=== PATIENT | female | born 1965 | race Caucasian/White ===

== ENCOUNTER → 2020-06-07 09:39 | Outpatient (BNVA) | payer MEDICARE, SELFPAY | PROVIDERS: Family Provider Nurse Practitioner; PCP Nurse Practitioner; Visit Provider Nurse Practitioner | DX: Z00.00 Encounter for general adult medical examination without abnormal findings (principal); E66.2 Morbid (severe) obesity with alveolar hypoventilation; E55.9 Vitamin D deficiency, unspecified; Z13.6 Encounter for screening for cardiovascular disorders; Z13.29 Encounter for screening for other suspected endocrine disorder | CPT/HCPCS: 80053; 80061; 81000; 82306; 84443; 85025 ==

== ENCOUNTER → 2022-05-28 11:13 | Outpatient (BNVA) | payer MEDICARE, SELFPAY | PROVIDERS: Family Provider Nurse Practitioner; PCP Nurse Practitioner; Visit Provider Nurse Practitioner Family | DX: B02.9 Zoster without complications (principal); E55.9 Vitamin D deficiency, unspecified; R73.9 Hyperglycemia, unspecified | CPT/HCPCS: 80053; 82306; 83036 ==

== ENCOUNTER 2022-06-29 06:51 | Outpatient (CLI) | payer MEDICARE, SELFPAY ==
--- NOTE | 2022-06-29 07:15 | US_ITS ---
WS: [email or web address] RIGHT UPPER QUADRANT ULTRASOUND HISTORY: R10.11 - Right upper quadrant pain COMPARISON: 09/07/2018 Liver: 16.6 cm in length. Normal size liver. No bile duct dilatation or mass. Portal Vein: Normal hepatopetal flow with monophasic waveform. Gallbladder: Status post cholecystectomy. CBD: 0.4 cm Pancreas: Normal size and echogenicity. Right kidney: 10.6 cm in length. Normal size and echogenicity. No hydronephrosis or mass. Aorta and IVC: Unremarkable abdominal aorta and IVC. No ascites. US/US abdomen limited [id number] IMPRESSION: 1. Status post cholecystectomy. 2. Normal liver and common bile duct.
--- NOTE | 2022-06-29 08:09 | MM_ITS ---
WS: [email or web address] SCREENING DIGITAL BREAST TOMOSYNTHESIS MAMMOGRAM WITH CAD HISTORY: Screening exam. COMPARISON: None available. Bilateral CC and MLO with tomosynthesis and synthetic mammography submitted. Computer aided detection analyzed. Breast composition: There are scattered areas of fibroglandular density. Small cluster of calcificati on in the central LEFT breast at a posterior depth. I suspect this may be a cluster of calcifications associated with an artery. This needs to be further evaluated to be sure these are arterial in origi n. No additional abnormality. MM/[place] [id number] IMPRESSION: BI-RADS: 0-Incomplete: Need additional imaging evaluation FOLLOW UP: Need Additional Imaging LEFT BREAST: Magnification views of suspicious calcification CC and MLO. Lefty Jenkins
== END 2022-06-29 06:52 | disposition home or self-care (01) ==
LOC: RAD 06:54
PROVIDERS: PCP Nurse Practitioner; Visit Provider Nurse Practitioner Family
DX: Z12.31 Encounter for screening mammogram for malignant neoplasm of breast (principal); R10.11 Right upper quadrant pain
CPT/HCPCS: 76705; 77063; 77067

== ENCOUNTER 2022-07-03 09:00 | Outpatient (CLI) | payer MEDICARE, SELFPAY ==
--- NOTE | 2022-07-03 | MM_ITS ---
WS: [email or web address] ADDITIONAL VIEWS LEFT MAMMOGRAM WITH DIGITAL BREAST TOMOSYNTHESIS. HISTORY: Calcifications on screening mammogram. COMPARISON: 06/29/2022. Magnification views LEFT breast in CC, MLO projections and true ML submitted with digital breast joe synthesis and SM. Calcifications persist in the central LEFT breast. There are a few calcifications of various sizes. M ajority of these are round and may be vascular in etiology. Some of these appear lucent centered. Fav or these are probably benign and therefore six-month follow-up recommended. MM/[place] [id number] IMPRESSION: BI-RADS: 3-Probably Benign FOLLOW UP: 6 Month Follow-up Recommend diagnostic LEFT mammogram follow-up in 6 months with magnification vi ews of the calcifications.
--- NOTE | 2022-07-03 09:10 | MM_ITS ---
WS: [email or web address] ADDITIONAL VIEWS LEFT MAMMOGRAM WITH DIGITAL BREAST TOMOSYNTHESIS. HISTORY: Calcifications on screening mammogram. COMPARISON: 06/29/2022. Magnification views LEFT breast in CC, MLO projections and true ML submitted with digital breast joe synthesis and SM. Calcifications persist in the central LEFT breast. There are a few calcifications of various sizes. M ajority of these are round and may be vascular in etiology. Some of these appear lucent centered. Fav or these are probably benign and therefore six-month follow-up recommended.
== END 2022-07-03 09:01 | disposition home or self-care (01) ==
PROVIDERS: PCP Nurse Practitioner; Visit Provider Nurse Practitioner Family
DX: R92.1 Mammographic calcification found on diagnostic imaging of breast (principal)
CPT/HCPCS: 77061; 77065; G0279

== ENCOUNTER → 2023-01-04 11:47 | Outpatient (BNVA) | payer MEDICARE, SELFPAY | PROVIDERS: PCP Nurse Practitioner; Visit Provider Nurse Practitioner Family | DX: R73.03 Prediabetes (principal); E66.2 Morbid (severe) obesity with alveolar hypoventilation; E55.9 Vitamin D deficiency, unspecified; R21 Rash and other nonspecific skin eruption; Z86.19 Personal history of other infectious and parasitic diseases; M25.50 Pain in unspecified joint; G89.29 Other chronic pain | CPT/HCPCS: 80053; 80061; 82306; 83036; 84443; 85025 ==

== ENCOUNTER 2023-01-13 10:52 | Outpatient (CLI) | payer MEDICARE, SELFPAY ==
--- NOTE | 2023-01-13 11:07 | MM_ITS ---
WS: [email or web address] DIAGNOSTIC LEFT DIGITAL TOMOSYNTHESIS MAMMOGRAPHY WITH CAD. HISTORY: 6M[facility] CALCS COMPARISON: 07/03/2022, 06/29/2022 Technique: CC, MLO and ML views. LEFT CC and MLO magnification views. Breast composition: There are scattered areas of fibroglandular density. No interval change in the fo elham calcifications in the central LEFT breast. No distortion. No new calcifications. IMPRESSION: MM/[place] [id number] BI-RADS: 3-Probably Benign FOLLOW UP: 6 Month Follow-up Patient return in 6 months for diagnostic, bilateral mammogram. Additional magn ification views of the LEFT breast calcification should be performed at that ti tn.
== END 2023-01-13 10:53 | disposition home or self-care (01) ==
PROVIDERS: PCP Nurse Practitioner; Visit Provider Nurse Practitioner Family
DX: R92.1 Mammographic calcification found on diagnostic imaging of breast (principal)
CPT/HCPCS: 77061; G0279

== ENCOUNTER 2023-07-19 09:12 | Outpatient (CLI) | payer MEDICARE, SELFPAY ==
--- NOTE | 2023-07-19 09:17 | MM_ITS ---
WS: [email or web address] VIEWS: MLO, CC, and ML views both breasts. 3D digital tomosynthesis is also included in this exam. Comparison made with prior exam of 323, 07/03/2022, 01/13/2023.. Findings: There are stable appearing calcifications in the central LEFT breast. No sign of new mass in either b reast. There are scattered areas of fibroglandular density Impression: MM/[place] [id number] BI-RADS: 2-Benign finding. FOLLOW-UP: 1 Year Follow-up This mammogram was also analyzed by the Computer Aided Detection System R2 Imag e A&P Technician.
== END 2023-07-19 09:13 | disposition home or self-care (01) ==
LOC: RAD 09:13
PROVIDERS: PCP Nurse Practitioner; Visit Provider Nurse Practitioner Family
DX: Z12.39 Encounter for other screening for malignant neoplasm of breast (principal); Z87.898 Personal history of other specified conditions; R92.30 Dense breasts, unspecified
CPT/HCPCS: 77062; G0279

== ENCOUNTER → 2024-07-11 14:45 | Outpatient (BNVA) | payer MEDICARE, SELFPAY | PROVIDERS: PCP Nurse Practitioner; Visit Provider Family Medicine | DX: E55.9 Vitamin D deficiency, unspecified (principal); Z86.19 Personal history of other infectious and parasitic diseases; E66.2 Morbid (severe) obesity with alveolar hypoventilation; Z00.00 Encounter for general adult medical examination without abnormal findings; E03.9 Hypothyroidism, unspecified | CPT/HCPCS: 80053; 80061; 82306; 82607; 83036; 83735; 84443; 85025; 86140 ==

== ENCOUNTER 2024-07-19 10:11 | Outpatient (CLI) | payer MEDICARE, SELFPAY ==
--- NOTE | 2024-07-19 10:20 | MM_ITS ---
WS: [email or web address] BILATERAL SCREENING DIGITAL TOMOSYNTHESIS MAMMOGRAM WITH CAD HISTORY: Z12.39 - Encounter for other screening for malignant neop... COMPARISON: 07/19/2023, 01/13/2023 Bilateral CC and MLO views with tomosynthesis and synthetic mammography submitted. Computer aided detection analyzed. Breast composition: There are scattered areas of fibroglandular density. No suspicious masses, microcalcifications or architectural distortion. Scattered asymmetries and calcifications are stable. Small cluster of calcifications in the central LEFT breast have not progressed. MM/MM scr BI tomosynthesis [id number] IMPRESSION: BI-RADS: 2 - Benign. FOLLOW UP: 1 Year Follow-up
== END 2024-07-19 10:12 | disposition home or self-care (01) ==
PROVIDERS: PCP Nurse Practitioner; Visit Provider Family Medicine
DX: Z12.31 Encounter for screening mammogram for malignant neoplasm of breast (principal); R92.323 Mammographic fibroglandular density, bilateral breasts; N64.89 Other specified disorders of breast; R92.1 Mammographic calcification found on diagnostic imaging of breast
CPT/HCPCS: 77063; 77067

== ENCOUNTER → 2024-07-24 09:16 | Outpatient (BNVA) | payer MEDICARE, SELFPAY | PROVIDERS: PCP Nurse Practitioner; Visit Provider Nurse Practitioner | DX: M25.561 Pain in right knee (principal) | CPT/HCPCS: 73560 ==

== ENCOUNTER 2024-09-24 05:00 | Outpatient (RCR) | payer MEDICARE, SELFPAY | END 2024-10-23 23:59 | disposition home or self-care (01) | LOC: SPT 05:00 | PROVIDERS: Visit Provider Orthopaedic Surgery | DX: M25.561 Pain in right knee (principal); M25.562 Pain in left knee | CPT/HCPCS: 97110; 97161 ==

== ENCOUNTER → 2024-10-02 07:58 | Outpatient (BNVA) | payer MEDICARE, SELFPAY | PROVIDERS: PCP Family Medicine; Visit Provider Orthopaedic Surgery | DX: M62.81 Muscle weakness (generalized) (principal); M22.2X1 Patellofemoral disorders, right knee; M22.2X2 Patellofemoral disorders, left knee | CPT/HCPCS: 99204 ==

== ENCOUNTER 2024-10-24 05:00 | Outpatient (RCR) | payer MEDICARE, SELFPAY | END 2024-11-23 23:59 | disposition home or self-care (01) | LOC: SPT 05:00 | PROVIDERS: PCP Family Medicine; Visit Provider Orthopaedic Surgery | DX: M25.561 Pain in right knee (principal); M25.562 Pain in left knee | CPT/HCPCS: 97110 ==

== ENCOUNTER → 2024-11-16 09:26 | Outpatient (BNVA) | payer MEDICARE, SELFPAY | PROVIDERS: PCP Family Medicine; Visit Provider Orthopaedic Surgery | DX: S83.412A Sprain of medial collateral ligament of left knee, initial encounter (principal); M22.8X2 Other disorders of patella, left knee; X58.XXXA Exposure to other specified factors, initial encounter | CPT/HCPCS: 99213 ==

== ENCOUNTER → 2025-01-01 07:57 | Outpatient (BNVA) | payer MEDICARE, SELFPAY | PROVIDERS: PCP Family Medicine; Visit Provider Orthopaedic Surgery | DX: M25.561 Pain in right knee (principal); M25.562 Pain in left knee; G89.29 Other chronic pain | CPT/HCPCS: 99213 ==

== ENCOUNTER → 2025-03-13 13:08 | Outpatient (BNVA) | payer MEDICARE, SELFPAY | PROVIDERS: PCP Family Medicine; Visit Provider Family Medicine | DX: R07.89 Other chest pain (principal); Z86.19 Personal history of other infectious and parasitic diseases; E66.2 Morbid (severe) obesity with alveolar hypoventilation; E55.9 Vitamin D deficiency, unspecified; R73.9 Hyperglycemia, unspecified | CPT/HCPCS: 80053; 80061; 83036; 85025 ==